=== PATIENT | female | born 1990 | race Hispanic/Latino ===

== ENCOUNTER 2025-04-18 23:10 | Emergency (ER) | payer OTHER ==
[~2025-04-18] VITALS: Ht 162.6 cm; Wt 86.2 kg
--- NOTE | 2025-04-19 | EKG ---
[facility] Test Date: 2025-04-18 Test Time: 23:58:07 Pat Name: AFSHAN RIVERA Department: ED Room: Gender: F Director Banking: [id number] : 1990 Requested By: AURELIA WHEATLEY Order Number: [id number] Reading MD: Robert Carroll Measurements Intervals [place] Rate: 85 P: 14 WV: 118 QRS: 12 QRSD: 92 T: 9 QT: 350 QTc: 417 Interpretive Statements Sinus rhythm No previous ECG available for comparison Electronically Signed On 04-19-2025 22:16:48 CDT by Robert Carroll Please click the below link to view image of tracing.
[2025-04-19 00:09] LABS: BASOPHILS # (AUTO) 0.05 K/uL (0.00-0.20); BASOPHILS % (AUTO) 0.6 % (0.0-5.0); EOSINOPHILS # (AUTO) 0.08 K/uL (0.00-0.70); EOSINOPHILS % (AUTO) 0.9 % (0.0-8.0); HEMATOCRIT 31.2 % (36-48); IMMATURE GRANULOCYTE ABSOLUTE 0.02 K/uL (0-1); LYMPHOCYTES # (AUTO) 1.4 K/uL (1.0-4.8); LYMPHOCYTES % (AUTO) 15.9 % (21.0-51.0); MEAN CORPUSCULAR HEMOGLOBIN 23.8 pg (27.0-33.0); MEAN CORPUSCULAR HGB CONC 30.1 g/dL (32.0-36.0); MONOCYTES # (AUTO) 0.5 K/uL (0.1-1.0); MONOCYTES % (AUTO) 6.1 % (3.0-13.0); NEUTROPHILS # (AUTO) 6.8 K/uL (1.8-7.7); NEUTROPHILS % (AUTO) 76.3 % (40.0-77.0); PLATELET COUNT (AUTO) 283 K/uL (130-400); RED BLOOD CELL COUNT(AUTO) 3.95 MIL/uL (4.00-5.50); RED CELL DISTRIBUTION WIDTH 19.5 % (11.0-15.5); WHITE BLOOD COUNT (AUTO) 8.9 K/uL (4.8-10.8)
[2025-04-19 00:18] LABS: CREATININE 0.7 mg/dL (0.5-1.0); POTASSIUM 3.8 mmol/L (3.5-5.1)
[2025-04-19] MEDS ORDERED: hydroMORPHone 2 MG VIAL (2MG/ML) IVP ONE (00:30)
[2025-04-19 00:36] LABS: B-TYPE NATRIURETIC PEPTIDE 52 pg/mL (0-100)
[2025-04-19] MEDS: hydroMORPHone 2 MG VIAL (2MG/ML) IVP ONE ×2 (00:38→03:23)
[2025-04-19] MEDS ORDERED: hydroMORPHone 1 MG INJ IVP ONE (01:00)
--- NOTE | 2025-04-19 01:04 | ERN ---
General Chief Complaint: Multiple Complaints Stated Complaint: LEFT LEG PAIN, SWELLING, CP SOB Time Seen by MD: 23:26 Source: patient History of Present Illness Initial Comments Patient is a 34-year-old female who comes in with a excruciating left calf pain and swelling. 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 It started after she had in vitro fertilization and then delivery of her twins. She mentions something that sounded like preeclampsia. She has had numerous admissions for these DVTs and numerous workups for a hypercoagulable state. These workups have all been negative. She also has had numerous anti coagulation therapy including Lovenox apixaban/Eliquis and still she has DVTs. She feels that her current symptoms match exactly those of prior DVTs. Allergies: Coded Allergies: No Known Allergies (Unverified Allergy, Unknown, 04/18/25) Past Medical History Past Medical History: CVA, Seizure, Other Medical History Other: DVT, PE, hypercoagulable state Past Surgical History: Other Surgical History Other: LEFT LUNG partial lobectomy ,IVC FILTER X 2 Constitutional: (-) chills, (-) diaphoresis, (-) fever, (-) malaise, (-) weakness, (-) other documentation EENTM: (-) eye pain, (-) blurred vision, (-) tearing, (-) double vision, (-) ear pain, (-) ear discharge, (-) nose pain, (-) nose congestion, (-) throat pain, (-) Throat swelling, (-) mouth pain, (-) tooth pain, (-) mouth swelling, (-) other documentation Respiratory: (-) cough, (-) orthopnea, (-) short of breath, (-) stridor, (-) wheezing, (-) other documentation Cardiovascular: (-) chest pain, (-) edema, (-) palpitations, (-) syncope, (-) dyspnea on exertion, (-) other documentation Gastrointestinal/Abdominal: (-) nausea, (-) vomiting, (-) diarrhea, (-) abdominal pain, (-) abdominal distention, (-) constipation, (-) rectal bleeding, (-) dark stool/melena, (-) other documentation Genitourinary: (-) vaginal discharge, (-) vaginal bleeding, (-) dysuria, (-) frequency, (-) hematuria, (-) pain, (-) other documentation Musculoskeletal: (-) Neck pain, (-) back pain, (-) Flank Pain, (-) joint pain, (-) joint swelling, (-) muscle pain, (-) muscle stiffness, (-) gout, (-) other documentation Skin: (-) laceration, (-) contusion, (-) abrasion, (-) abscess, (-) rash, (-) change in color, (-) change in hair, (-) change in nails, (-) diaphoresis, (-) dryness, (-) other documentation Physical Exam General Appearance: (+) moderate distress, (+) severe distress Orientation: (+) alert, (+) oriented x 3 Head/Face Trauma: No Eye: bilateral eye normal inspection, bilateral eye PERRL, bilateral eye EOMI Ear, Nose, Throat: (+) hearing grossly normal, (+) normal ENT inspection, (+) moist mucous membraine, (+) normal pharynx Neck: (+) normal inspection, (+) supple, (+) full range of motion Respiratory: (+) chest non-tender, (+) lungs clear, (+) well ventilated Heart: (+) regular, (+) no gallop Vascular: (+) no edema, (+) normal peripheral pulse Vascular Comment Left calf is more swollen than the right calf. Distal pulses intact. Breast Exam: (-) normal breast exam, (-) breast pain, (-) breast lump, (-) nipple discharge, (-) deferred, (-) other documentation Extremities Comment Severe left calf tenderness and swelling. Results Laboratory and Microbiology Lab and Micro Result Laboratory Tests Test 04/18/25 23:59 04/19/25 02:24 White Blood Count 8.9 K/uL (4.8-10.8) Red Blood Count 3.95 MIL/uL (4.00-5.50) L Hemoglobin 9.4 g/dL (12.0-16.0) L Hematocrit 31.2 % (36-48) L Mean Corpuscular Volume 79.0 fL (79-99) Mean Corpuscular Hemoglobin 23.8 pg (27.0-33.0) L Mean Corpuscular Hemoglobin Concent 30.1 g/dL (32.0-36.0) L Red Cell Distribution Width 19.5 % (11.0-15.5) H Platelet Count 283 K/uL (130-400) Mean Platelet Volume 10.7 fL (7.5-10.5) H Immature Granulocyte % (Auto) 0.2 % (0-1) Neutrophils (%) (Auto) 76.3 % (40.0-77.0) Lymphocytes (%) (Auto) 15.9 % (21.0-51.0) L Monocytes (%) (Auto) 6.1 % (3.0-13.0) Eosinophils (%) (Auto) 0.9 % (0.0-8.0) Basophils (%) (Auto) 0.6 % (0.0-5.0) Neutrophils # (Auto) 6.8 K/uL (1.8-7.7) Lymphocytes # (Auto) 1.4 K/uL (1.0-4.8) Monocytes # (Auto) 0.5 K/uL (0.1-1.0) Eosinophils # (Auto) 0.08 K/uL (0.00-0.70) Basophils # (Auto) 0.05 K/uL (0.00-0.20) Absolute Immature Granulocyte (auto 0.02 K/uL (0-1) Nucleated Red Blood Cells 0.0 % (0.0-0.19) Red Blood Cell Morphology See comments Sodium Level 141 mmol/L (136-145) Potassium Level 3.8 mmol/L (3.5-5.1) Chloride Level 107 mmol/L (101-111) Carbon Dioxide Level 24 mmol/L (21-32) Blood Urea Nitrogen 10 mg/dL (7-18) Creatinine 0.7 mg/dL (0.5-1.0) Glomerular Filtration Rate Calc 115 mL/min (>90) Random Glucose 95 mg/dL (70-105) Total Calcium 9.0 mg/dL (8.5-10.1) Total Creatine Kinase 37 U/L (21-232) Troponin I High Sensitivity 5 ng/L (4-50) B-Type Natriuretic Peptide 52 pg/mL (0-100) Urine Color LIGHT-YELLOW (YELLOW) Urine Appearance CLEAR (CLEAR) Urine pH 6.5 (5.0-8.0) Urine Specific [place] 1.015 (1.001-1.031) Urine Protein NEGATIVE mg/dL (NEGATIVE) Urine Glucose (UA) NEGATIVE mg/dL (NEGATIVE) Urine Ketones NEGATIVE mg/dL (NEGATIVE) Urine Occult Blood SMALL (NEGATIVE) H Urine Nitrate NEGATIVE (NEGATIVE) Urine Bilirubin NEGATIVE mg/dL (NEGATIVE) Urine Urobilinogen 0.2 mg/dL (0.2-1.0) Urine Leukocyte Esterase NEGATIVE [place]/uL Urine RBC 2-5 /HPF (0-1) H Urine WBC 2-5 /HPF (0-1) H Urine Squamous Epithelial Cells FEW /HPF (0-2) Urine Bacteria None /HPF (None Seen) MDM Patient with a new DVT. I will start a heparin drip heparin protocol. A CBC. I discussed getting a CT PE with the patient she states she feels like she has no shortness of breath and does not need a CT PE right now. Patient's ultrasound of her left lower extremity is negative for any clots in any of the veins. The next step in the workup was to do an angiogram in her legs however we have not been able to establish an IV in her hands arms feet or anywhere. The patient would like to go home now and follow-up with the [facility] as that is closer to her house. I am okay with that plan as the patient's CK level is low, the rest of her chemistry panel is normal her CBC is normal and her urine is normal. She tells me that now she is on Lovenox 80 mg b.i.d.. I recommend that she get a anti Xa level when she goes to [facility]. ED Course Orders Procedure Category Date Status Time Vital Signs Per CPOE 04/18/25 Transmitted Routine 23:37 B-Type Natriuretic LAB 04/18/25 Complete Peptide 23:37 Chest 1vw RAD 04/18/25 Taken 23:37 12 Lead Ekg Tracing- EKG 04/18/25 Complete Technical 23:37 Oxygen By Nc/Pulse Ox CPOE 04/18/25 Transmitted 23:37 Maintain Iv CPOE 04/18/25 Transmitted 23:37 Iv Insertion CPOE 04/18/25 Transmitted 23:37 Cardiac Monitoring CPOE 04/18/25 Transmitted 23:37 Pulse Oximetry With CPOE 04/18/25 Transmitted Vs And Prn 23:37 Cbc With Differential LAB 04/18/25 Complete 23:37 Activity: Br W/Brp CPOE 04/18/25 Transmitted With Assist 23:37 Creatine Kinase, Total LAB 04/18/25 Complete 23:37 Troponin I High LAB 04/18/25 Complete Sensitivity 23:37 Urinalysis Profile LAB 04/18/25 Complete 23:37 Basic Metabolic Panel LAB 04/18/25 Complete 23:37 Hydromorphone 2mg PHA 04/19/25 Complete Vial (Dilaudid 2mg Inj 00:30 Hydromorphone 1 Mg PHA 04/19/25 Complete Inj (Dilaudid 1mg Inj 01:00 Hydromorphone 2mg PHA 04/19/25 Complete Vial (Dilaudid 2mg Inj 01:00 Initiate Heparin SANGEETA 04/19/25 In Process Treatment Pro 00:38 Cbc With Differential LAB 04/20/25 Verified 04:00 Cbc With Differential LAB 04/23/25 Verified 04:00 Cbc With Differential LAB 04/26/25 Verified 04:00 Partial LAB 04/19/25 Logged Thromboplastin Time 00:38 Heparin 5,000 Unit PHA 04/19/25 In Process Vial (Heparin 5,000 U 01:30 Heparin 25,000 PHA 04/19/25 In Process Units/250ml D5w 01:30 Heparin Protocol CPOE 04/19/25 Transmitted Monitoring 00:38 Us Venous Doppler US 04/19/25 Taken Unilateral 00:38 Place Picc Line CPOE 04/19/25 Transmitted 02:06 Creatine Kinase, Total LAB 04/19/25 Logged 02:39 Hydromorphone 2mg PHA 04/19/25 Complete Vial (Dilaudid 2mg Inj 03:30 Current Medications Medications (Trade) Dose Ordered Sig/Sneha Route PRN Reason Start Time Stop Time Status Last Admin Dose Admin Heparin Sodium (Porcine) (HEParin 5,000 UNIT VIAL) *calculation based on ACTUAL B... AD PRN IV HEPARIN PROTOCOL 04/19/25 01:30 05/19/25 01:29 Heparin Sodium/ Dextrose 250 ml @ 0 mls/hr Q6H IV 04/19/25 01:30 05/19/25 01:29 Hydromorphone HCl (DiLAUDid 1MG INJ) 1 mg ONCE ONCE IVP 04/19/25 01:00 04/19/25 00:34 DC Hydromorphone HCl (DiLAUDid 2MG INJ) 2 mg ONCE ONCE IVP 04/19/25 00:30 04/19/25 00:30 DC Hydromorphone HCl (DiLAUDid 2MG INJ) 2 mg ONCE ONCE IVP 04/19/25 01:00 04/19/25 01:01 DC 04/19/25 00:38 Hydromorphone HCl (DiLAUDid 2MG INJ) 2 mg ONCE ONCE IVP 04/19/25 03:30 04/19/25 03:31 DC 04/19/25 03:23 Vital Signs Date Time Temp Pulse Resp B/P (MAP) Pulse Ox O2 Delivery O2 Flow Rate FiO2 04/19/25 02:45 99.0 83 16 130/84 98 Room Air* 0 21 04/18/25 23:26 99.1 93 16 131/84 100 Room Air* 0 21 04/18/25 23:12 98.4 93 20 147/123 100 Room Air DX & DISP Disposition: Discharge Departure Impression: Primary Impression: Muscle pain Condition: Stable Referrals: SELF,REFERRAL (PCP) When you go to [facility] ask for an anti 10 a level. That will tell you if your Lovenox is therapeutic or not. Please return if you have the symptoms that brought you here in the 1st place. You certainly are at risk for forming clots. AURELIA WHEATLEY MD Apr 19, 2025 01:04
[2025-04-19] MEDS ORDERED: HEParin 5,000 UNIT VIAL IV PRN (01:30)
[2025-04-19] MEDS ORDERED: HEParin 25,000 UNITS/250ML D5W 250 ML IV SCH (01:30)
[2025-04-19 02:36] LABS: APPEARANCE,URINE CLEAR (CLEAR); BILIRUBIN,URINE NEGATIVE (NEGATIVE); COLOR,URINE LIGHT-YELLOW (YELLOW); GLUCOSE, URINE (UA) NEGATIVE (NEGATIVE); KETONES,URINE NEGATIVE (NEGATIVE); LEUKOCYTE ESTERASE ,URINE NEGATIVE Leu/uL (NEGATIVE); NITRATE,URINE NEGATIVE (NEGATIVE); OCCULT BLOOD,URINE SMALL (NEGATIVE); PH,URINE 6.5 (5.0-8.0); PROTEIN,URINE NEGATIVE (NEGATIVE); UROBILINOGEN,URINE 0.2 mg/dL (0.2-1.0)
[2025-04-19 02:37] LABS: ADD UA MICROSCOPIC YES
[2025-04-19 02:39] LABS: MUCUS,URINE RARE LPF (None Seen); SQUAMOUS EPITHELIAL CELL,UR FEW /HPF (0-2)
--- NOTE | 2025-04-19 03:14 | NUR ---
HOLD HEPARIN PROTOCOL FOR NOW PER DR WHEATLEY, RELATED TO NEGATIVE DOPPLER STUDIES, WILL CONT TO MONITOR
[2025-04-19] MEDS ORDERED: KETO10 PO (04:32)
[2025-04-19 05:10] VITALS: BP 132/87; PULSE 80; RESP 16; TEMP 98.7; O2SAT 98
--- NOTE | 2025-04-19 10:19 | HMCIMG ---
US VENOUS DOPPLER UNILATERAL REASON: DVT COMPARISON: None Technique: Left venous doppler ultrasound was performed with spectral analysis and color flow imaging technique. FINDINGS: There is a normal appearance of the common femoral, deep femoral, the profunda femoris and popliteal veins. Proximal calf veins appear normal as well. There is normal response to compression and augmentation. There is no evidence of deep venous thrombosis. IMPRESSION: Normal left lower extremity venous Doppler ultrasound.
--- NOTE | 2025-04-19 10:20 | HMCIMG ---
CHEST 1VW REASON: CHEST PAIN COMPARISON: None. FINDINGS: Single view of the chest was obtained. Lungs are clear. Heart size is normal. There is no pulmonary vascular congestion. Mediastinum and bony thorax appear unremarkable. IMPRESSION: 1. Normal single view chest x-ray.
== END 2025-04-19 05:19 | disposition home or self-care (01) ==
LOC: EDH 23:10
DX: M79.10 Myalgia, unspecified site (principal); Z79.01 Long term (current) use of anticoagulants; Z86.718 Personal history of other venous thrombosis and embolism; Z86.73 Personal history of transient ischemic attack (TIA), and cerebral infarction without residual deficits
CPT/HCPCS: 99285; 71045; 82550; 84484; 80048; 83880; 85025; 81001; 36415 ×2; 93005; 96374; 93971; 96376; J1171 ×2

== ENCOUNTER 2025-05-03 14:15 | Emergency (ER) | payer BC, OTHER ==
[~2025-05-03] VITALS: Ht 160 cm; Wt 86.2 kg
[~2025-05-03 14:15] MED LIST: KETO10 PO
[2025-05-03 14:19] VITALS: BP 124/71; PULSE 76; RESP 18; TEMP 98.7
--- NOTE | 2025-05-03 14:55 | ERN ---
General Chief Complaint: Multiple Complaints Stated Complaint: DVT ON LEFT LEG SWOLLEN;SEIZURE THIS MORNING Time Seen by MD: 14:17 Source: patient History of Present Illness Initial Comments Patient is a 34-year-old female coming in to be evaluated there she had a fall. Per patient she has been having seizures for some time has been she had for that. Long with this she states that she has had multiple DVTs in the past as well as pulmonary embolisms. Allergies: Coded Allergies: No Known Allergies (Unverified Allergy, Unknown, 04/18/25) Home Meds Active Scripts Ketorolac Tromethamine (Toradol) 10 Mg Tab, 1 TAB PO Q6HPRN PRN for pain for 5 Days, #20 TAB 0 Refills Prov:AURELIA WHEATLEY MD 04/19/25 Past Medical History Past Medical History: CVA, Seizure, Other Medical History Other: DVT, PE, hypercoagulable state Past Surgical History: Other Surgical History Other: LEFT LUNG partial lobectomy ,IVC FILTER X 2 ROS Dictation CONSTITUTIONAL: No chills, no fever, no weakness, no diaphoresis, no malaise. HEAD/FACE: No signs of trauma. EENT: No eye pain, no blurred vision, no tearing, no double vision, no ear pain, no ear discharge, no nose pain, no nasal congestion, no throat pain, no throat swelling, no mouth pain. RESPIRATORY: No cough, no orthopnea, no SOB, no stridor, no wheezing. CARDIOVASCULAR: No chest pain, no edema, no palpitations, no syncope. GASTROINTESTINAL/ABDOMINAL: No abdominal pain, no constipation, no diarrhea, no nausea, no vomiting. GENITOURINARY: No abnormal discharge, no dysuria, no frequent urination, no hematuria. No complaints of pain in the genitals. MUSCULOSKELETAL: No back pain, no gout, no joint pain, no joint swelling, no muscle pain, no muscle stiffness, no neck pain. INTEGUMENTARY: No change in color, no change in hair/nails, no dryness, no lesion, no lumps, no rash. NEUROLOGICAL/PSYCH: No anxiety, not depressed, no emotional problem, no headache, no numbness, no pre-existing deficit, no history of seizures, no tremors, no weakness. HEMATOLOGIC/LYMPHATIC: Not anemic, no history of blood clots, no apparent bleeding, no bruising, glands not swollen. All Systems Negative, Except as Noted. Physical Exam Physical Exam Dictation VITAL SIGNS: Reviewed. GENERAL APPEARANCE: Alert, oriented x3, no acute distress, obese. HEAD AND FACE: Non-traumatic. EYES: PERRL, pink conjunctivas, eyelid no trauma, anterior chamber clear. EARS: Pinnas intact and no signs of trauma or erythema. Ear canals clear and no discharge. TMs no erythema. NOSE: No discharge, no bleeding. OROPHARYNX: Mouth normal, teeth no caries, tongue pink. Pharynx clear, no erythema. Tonsils no exudates, no abscesses noted. Mucous membrane moist. NECK: Supple, non-tender, no thyromegaly, no masses, no JVD, no bruits. BREAST: Deferred. CHEST: No tenderness, no crepitus, no paradoxical movement, no retractions. LUNGS: Clear, well-ventilated, symmetric, no rales, no wheezing, no rhonchi, no stridor, good breath sounds bilaterally. HEART: Regular rate, regular rhythm, no murmur, no gallops. VASCULAR: No peripheral edema. ABDOMEN: Soft, positive bowel sounds, nondistended, no guarding, nontender, no rebound, no masses no hepatomegaly, no splenomegaly, no Bertrand's sign, no he rnias. RECTAL: Deferred. GENITAL: Deferred. NEUROLOGICAL: Normal speech, gross motor function intact, gross sensory functio n intact. MUSCULOSKELETAL: Neck nontender, full range of motion, back nontender, full range of motion. EXTREMITIES: Nontender, full range of motion. SKIN: Color pink, dry, no turgor, no rash, no lacerations, no abrasions, no contusions. LYMPHATICS: Deferred. Results Laboratory and Microbiology Lab and Micro Result Laboratory Tests Test 05/03/25 15:00 White Blood Count 7.6 K/uL (4.8-10.8) Red Blood Count 3.73 MIL/uL (4.00-5.50) L Hemoglobin 8.9 g/dL (12.0-16.0) L Hematocrit 28.7 % (36-48) L Mean Corpuscular Volume 76.9 fL (79-99) L Mean Corpuscular Hemoglobin 23.9 pg (27.0-33.0) L Mean Corpuscular Hemoglobin Concent 31.0 g/dL (32.0-36.0) L Red Cell Distribution Width 19.9 % (11.0-15.5) H Platelet Count 339 K/uL (130-400) Mean Platelet Volume 11.1 fL (7.5-10.5) H Immature Granulocyte % (Auto) 0.3 % (0-1) Neutrophils (%) (Auto) 64.4 % (40.0-77.0) Lymphocytes (%) (Auto) 21.8 % (21.0-51.0) Monocytes (%) (Auto) 9.8 % (3.0-13.0) Eosinophils (%) (Auto) 2.9 % (0.0-8.0) Basophils (%) (Auto) 0.8 % (0.0-5.0) Neutrophils # (Auto) 4.9 K/uL (1.8-7.7) Lymphocytes # (Auto) 1.7 K/uL (1.0-4.8) Monocytes # (Auto) 0.7 K/uL (0.1-1.0) Eosinophils # (Auto) 0.22 K/uL (0.00-0.70) Basophils # (Auto) 0.06 K/uL (0.00-0.20) Absolute Immature Granulocyte (auto 0.02 K/uL (0-1) Nucleated Red Blood Cells 0.0 % (0.0-0.19) Prothrombin Time 10.2 SEC (9.6-11.6) Prothromb Time International Ratio 0.96 (0.85-1.15) Activated Partial Thromboplast Time 20.8 SEC (26.3-35.5) L Sodium Level 141 mmol/L (136-145) Potassium Level 3.5 mmol/L (3.5-5.1) Chloride Level 104 mmol/L (101-111) Carbon Dioxide Level 29 mmol/L (21-32) Blood Urea Nitrogen 11 mg/dL (7-18) Creatinine 0.6 mg/dL (0.5-1.0) Glomerular Filtration Rate Calc 119 mL/min (>90) Random Glucose 82 mg/dL (70-105) Total Calcium 9.0 mg/dL (8.5-10.1) Total Creatine Kinase 37 U/L (21-232) Troponin I High Sensitivity < 4 ng/L (4-50) L Labs Reviewed?: Yes EKG/XRAY/US/CT/MRI X-RAY Comment [facility] [address] [address] IMAGING REPORT Signed PATIENT: AFSHAN RIVERA MR#: [id number] : 1990 SEX: F AGE: 34 LOCATION: [facility] ORDER 1502 STATUS: REG [facility] REPORT#: [id number] SERVICE 1438 REASON: cp ORDERING PHYSICIAN: JAYSHREE BALL MD PROCEDURE: CXR1VW - CHEST 1VW CHEST 1VW HISTORY: Chest pain COMPARISON: 04/19/2025 FINDINGS: A frontal projection of the chest was obtained. No acute pulmonary infiltrates is seen. The heart is normal in size. Prominent interstitial markings are seen. No evidence of aortic calcification is seen. IMPRESSION: 1. No acute pulmonary infiltrate is seen. DICTATED BY: JACKIE GALLEGO MD DATE: 05/03/25 1547 ELECTRONICALLY SIGNED BY: JACKIE GALLEGO MD DATE: 05/03/[address] Scan Comment [facility] [address] [address] IMAGING REPORT Signed PATIENT: AFSHAN RIVERA MR#: [id number] : 1990 SEX: F AGE: 34 LOCATION: [facility] ORDER 1502 STATUS: REG ER REPORT#: [id number] SERVICE 1438 REASON: fsll ORDERING PHYSICIAN: JAYSHREE BALL MD PROCEDURE: HEAD WO - CT HEAD/BRAIN W/O CONTRAST CT HEAD/BRAIN W/O CONTRAST HISTORY: TRAUMA ALERT COMPARISON: None TECHNIQUE: Multiple sequential axial images of the head were obtained from the base of the skull through vertex. Patient was not given contrast through intravenous route. FINDINGS: The ventricles and extraventricular CSF spaces are nondilated for patient's age. There is no midline shift, mass effect or herniation. No acute intracranial bleed is seen. Visualized portion of the paranasal sinuses are grossly within normal limits. IMPRESSION: 1. No acute intracranial bleed is seen. CT was performed with one or more following dose reduction techniques: automated exposure control, adjustment of the mA and kv according to patient's size, or use of a iterative reconstruction technique. DICTATED BY: JACKIE GALLEGO MD DATE: 05/03/251513 ELECTRONICALLY SIGNED BY: JACKIE GALLEGO MD DATE: 05/03/25 151 [facility] MDM: Differential diagnosis: Pain seeking behavioral, history of DVT, history of lower leg extremity pain. Rationale: Tests considered and ordered secondary to shared decision making include: Previous outside records reviewed: Old ER visits. Risk of complication and/or morbidity or mortality of patient management: None Medications-Per medication reconciliation Need for hospitalization: Patient does not meet criteria for hospitalization. Need for emergency major/minor surgery: No There are no social concerns with this patient. Prescription drug management Prescriptions will include symptomatic care Patient's prior external medical records from other ER visits were reviewed by me as indicated. Prior testing and results from previous visits were reviewed. Prior tests were taken into account with medical decision making and resource utilization, independent historian/historians were used to obtain complete medical history. I independently interpreted the test that were performed, results were reviewed by me and considered findings on radiology if ordered. Medical management and examination interpretation discussions were had by me with other qualified healthcare professionals as indicated for the patient's care. Patient is a 34-year-old female coming in complaining of left leg pain as well as chest pain. She also states that she had had a seizure earlier today so back in her head. Patient was being evaluated CT was performed it of the fall and her being on Eliquis. Was informed by nursing staff the patient was refusing EKG until she got some pain meds. Patient was given tramadol and was later informed that she refused it. She states that she needs something stronger. I did advise her we would seated accordingly and that we will ashanti luate her chest pain her fall and her possible DVT. I did advise her from the previous visit that the ultrasound was negative for DVT. While waiting for the cardiac workup was informed by nursing staff that patient walked out. ED Course Orders Procedure Category Date Status Time Cbc With Differential LAB 05/03/25 In Process 14:30 Prothrombin Time With LAB 05/03/25 Complete INR 14:38 Chest 1vw RAD 05/03/25 Resulted 14:38 12 Lead Ekg Tracing- EKG 05/03/25 Logged Technical 14:38 Creatine Kinase, Total LAB 05/03/25 Complete 14:38 Troponin I High LAB 05/03/25 Complete Sensitivity 14:38 Urinalysis Profile LAB 05/03/25 Logged 14:38 Partial LAB 05/03/25 Complete Thromboplastin Time 14:38 Basic Metabolic Panel LAB 05/03/25 Complete 14:38 Ct Head/Brain W/O CT 05/03/25 Resulted Contrast 14:38 Tramadol Hcl (Ultram) PHA 05/03/25 Complete 15:30 Hydroxyzine 50mg Vial PHA 05/03/25 Complete (Atarax 50mg Inj) 16:00 Us Venous Doppler US 05/03/25 Logged Unilateral 15:53 Drug Screen Urine LAB 05/03/25 Logged 15:54 ,Urine Test LAB 05/03/25 Logged 15:54 Current Medications Medications (Trade) Dose Ordered Sig/Sneha Route PRN Reason Start Time Stop Time Status Last Admin Dose Admin Hydroxyzine HCl (ATArax 50MG INJ) 50 mg ONCE ONCE IM 05/03/25 16:00 05/03/25 16:01 DC 05/03/25 15:54 Tramadol HCl (UltRAM) 50 mg ONCE ONCE PO 05/03/25 15:30 05/03/25 15:31 DC 05/03/25 15:36 Vital Signs Date Time Temp Pulse Resp B/P (MAP) Pulse Ox O2 Delivery O2 Flow Rate FiO2 05/03/25 14:19 98.8 76 18 124/71 100 Room Air 0 DX & DISP Disposition: AMA Departure Impression: Primary Impression: Muscle pain Condition: Against Medical Advice Additional Instructions: Was informed by nursing staff the patient eloped from ER Referrals: SELF,REFERRAL (PCP) JAYSHREE BALL MD May 03, 2025 14:55
--- NOTE | 2025-05-03 15:16 | HMCIMG ---
CT HEAD/BRAIN W/O CONTRAST HISTORY: TRAUMA ALERT COMPARISON: None TECHNIQUE: Multiple sequential axial images of the head were obtained from the base of the skull through vertex. Patient was not given contrast through intravenous route. FINDINGS: The ventricles and extraventricular CSF spaces are nondilated for patient's age. There is no midline shift, mass effect or herniation. No acute intracranial bleed is seen. Visualized portion of the paranasal sinuses are grossly within normal limits. IMPRESSION: 1. No acute intracranial bleed is seen. CT was performed with one or more following dose reduction techniques: automated exposure control, adjustment of the mA and kv according to patient's size, or use of a iterative reconstruction technique.
[2025-05-03 15:26] LABS: BASOPHILS # (AUTO) 0.06 K/uL (0.00-0.20); BASOPHILS % (AUTO) 0.8 % (0.0-5.0); EOSINOPHILS # (AUTO) 0.22 K/uL (0.00-0.70); EOSINOPHILS % (AUTO) 2.9 % (0.0-8.0); HEMATOCRIT 28.7 % (36-48); IMMATURE GRANULOCYTE ABSOLUTE 0.02 K/uL (0-1); LYMPHOCYTES # (AUTO) 1.7 K/uL (1.0-4.8); LYMPHOCYTES % (AUTO) 21.8 % (21.0-51.0); MEAN CORPUSCULAR HEMOGLOBIN 23.9 pg (27.0-33.0); MEAN CORPUSCULAR VOLUME 76.9 fL (79-99); MONOCYTES # (AUTO) 0.7 K/uL (0.1-1.0); MONOCYTES % (AUTO) 9.8 % (3.0-13.0); NEUTROPHILS # (AUTO) 4.9 K/uL (1.8-7.7); NEUTROPHILS % (AUTO) 64.4 % (40.0-77.0); PLATELET COUNT (AUTO) 339 K/uL (130-400); RED BLOOD CELL COUNT(AUTO) 3.73 MIL/uL (4.00-5.50); RED CELL DISTRIBUTION WIDTH 19.9 % (11.0-15.5); WHITE BLOOD COUNT (AUTO) 7.6 K/uL (4.8-10.8)
[2025-05-03 15:35] LABS: CREATININE 0.6 mg/dL (0.5-1.0); POTASSIUM 3.5 mmol/L (3.5-5.1)
[2025-05-03] MEDS: traMADol HCL 50 MG TABLET PO ONE (15:36)
[2025-05-03 15:38] LABS: INR 0.96 (0.85-1.15); PROTHROMBIN TIME 10.2 SEC (9.6-11.6)
[2025-05-03 15:39] LABS: PARTIAL THROMBOPLASTIN TIME 20.8 SEC (26.3-35.5)
--- NOTE | 2025-05-03 15:50 | HMCIMG ---
CHEST 1VW HISTORY: Chest pain COMPARISON: 04/19/2025 FINDINGS: A frontal projection of the chest was obtained. No acute pulmonary infiltrates is seen. The heart is normal in size. Prominent interstitial markings are seen. No evidence of aortic calcification is seen. IMPRESSION: 1. No acute pulmonary infiltrate is seen.
[2025-05-03] MEDS: hydrOXYzine 50MG VIAL 50 MG/ML VIAL IM ONE (15:54)
== END 2025-05-03 16:13 | disposition left against medical advice (07) ==
LOC: EDH 14:15
DX: M79.10 Myalgia, unspecified site (principal); Z86.73 Personal history of transient ischemic attack (TIA), and cerebral infarction without residual deficits; Z79.899 Other long term (current) drug therapy; Z98.890 Other specified postprocedural states
CPT/HCPCS: 99285; 70450; 71045; 82550; 84484; 80048; 85025; 85610; 85730; 36415; 96372; J3410; 99284; 99291